=== PATIENT | female | born 1980 | race Caucasian/White ===

== ENCOUNTER 2018-09-24 06:19 | Day surgery (SDC) | payer OTHER ==
[~2018-09-24] VITALS: Ht 157.5 cm; Wt 58.1 kg
[~2018-09-24 06:19] MED LIST: BLISOVI FE; BUPROPION HCL100 M1 PO
[2018-09-24 06:56] LABS: CALC OSMOLALITY 279 mosm/kg (275-300); CALCIUM 8.9 mg/dL (8.5-10.1); CARBON DIOXIDE 26.4 mmol/L (21.0-32.0); CHLORIDE - SERUM 104 mmol/L (98-107); CREATININE - SERUM 0.8 mg/dL (0.6-1.3); GLUCOSE 92 mg/dL (74-106); POTASSIUM - SERUM 4.2 mmol/L (3.5-5.1); SODIUM 140 mmol/L (136-145); UREA NITROGEN 15 mg/dL (7-18); eGFR NON AFRICAN AMERICAN 86 mL/min (90-120)
[2018-09-24 07:05] LABS: BASOPHILS 0.1 % (0-2); EOSINOPHILS 3.9 % (0-7); HEMATOCRIT 39.2 % (36.0-48.0); HEMOGLOBIN 13.3 g/dL (12-16); IMMATURE GRANULOCYTES 0.1 % (0-5); LYMPHOCYTES 41.7 % (15-50); MCH 31.4 pg (26.0-34.0); MCHC 33.9 g/dL (31.0-37.0); MCV 92.7 fL (80.0-100.0); MEAN PLATELET VOLUME 10.2 fL (7.4-10.4); MONOCYTES 6.7 % (2-11); NEUTROPHILS 47.5 % (40-80); PLATELET COUNT 242 10x3/uL (130-400); RBC 4.23 10x6/uL (4.00-5.40); RDW 12.1 % (11.5-14.5); WBC 7.3 10x3/uL (4.8-10.8)
[2018-09-24 07:45] LABS: HCG URINE NEGATIVE (NEGATIVE)
[2018-09-24 08:16] VITALS: BP 109/73; Ht 157.5 cm; Wt 58.1 kg
[2018-09-24] MEDS ORDERED: HYDROCODON-ACE1 EA10 PO (09:48)
--- NOTE | 2018-09-30 07:54 | OP ---
PATIENT NAME: DENICE MCKEE MEDICAL RECORD: [id number] :84 LOCATION:[facility] ADMISSION DATE: SURGEON: JEZ WILDE MD DATE OF OPERATION: 09/24/2018 PREOPERATIVE DIAGNOSIS: Posterior scalp mass. POSTOPERATIVE DIAGNOSIS: Posterior scalp cyst. PROCEDURE: Excision of 1.5 posterior scalp cyst. SURGEON: Jez Wilde MD REPORT OF PROCEDURE: The patient's posterior scalp was shaved and then prepped and draped in sterile fashion. A longitudinal incision was made going in line with the hair fibers and overlying the mass. As we came down through this the subcutaneous tissues, we encountered a fluid-filled pocket. This fluid was serous in nature with no signs of purulent material and no sebum. The cyst cavity itself was opened up and was noted to be very, very small cyst pocket. The turner of the cyst pocket were very thin in nature. We were able to excise this using electrocautery down to what appeared to be normal fatty tissue. At the conclusion of the case, I just treated the surrounding area with electrocautery to stop any bleeding and to hopefully remove any of the remaining cyst pocket if it happened to be present. The area had no sign of any bleeding. We then irrigated out the wound with normal saline. The subcutaneous tissues were infused with a total of 10 mL of 0.25% Marcaine with epinephrine. The subcutaneous tissues were then closed with subcutaneous 3-0 Vicryl and the skin was closed with running subcutaneous 4-0 Monocryl. COMPLICATIONS: None. CONDITION: Stable. ANESTHESIA: General endotracheal and local. BLOOD LOSS: Minimal. TRANSINT:[id number] Voice Confirmation ID: [id number] DOCUMENT ID: [id number] JEZ WILDE MD at 0754 CC: ZULYEMA SEXTON [id number] DICTATION DATE: 09/24/18 0953 PEDIATRIC PSYCHOLOGIST: 09/24/18 1151 [facility] 09/24/18 [id number] [place] [address]
== END 2018-09-24 11:38 | disposition home or self-care (01) ==
LOC: D.OPS 06:19 → D.PAN 09:00 → D.OPS 11:38
PROVIDERS: ATTEND Surgery
DX: L72.9 Follicular cyst of the skin and subcutaneous tissue, unspecified (principal)